=== PATIENT | female | born 1935 | race Caucasian/White ===

== ENCOUNTER 2024-01-13 08:14 | Inpatient (IN) ==
[2024-01-13 08:38] LABS: Basophils # (Auto) 0.02 K/mcL (0.00-0.30); Basophils % (Auto) 0.3 % (0.0-2.0); Eosinophils # (Auto) 0.06 K/mcL (0.00-0.70); Hematocrit 42.8 % (34.1-44.9); Hemoglobin 13.7 g/dL (11.2-15.7); Lymphocytes # (Auto) 1.46 K/mcL (1.50-4.80); Lymphocytes % (Auto) 23.8 % (15.5-49.0); Mean Platelet Volume 10.9 fL (8.8-12.5); Monocytes # (Auto) 0.66 K/mcL (0.10-0.90); Monocytes % (Auto) 10.7 % (1.0-12.0); Platelet Count 182 K/mcL (140-440); RBC 4.81 M/mcL (3.59-5.38); Red Cell Distribution Width 14.4 % (11.5-14.5); WBC 6.1 K/mcL (4.5-11.0)
[2024-01-13 08:47] LABS: INR 0.9 (0.9-1.1); Prothrombin Time 12.3 sec (11.9-14.5)
[2024-01-13 09:00] LABS: ALT/SGPT 14 U/L (<40); AST/SGOT 25 U/L (<32); Albumin 4.4 gm/dL (3.2-5.2); Albumin/Globulin Ratio 1.8 (1.0-2.3); Alkaline Phosphatase 109 U/L (39-117); Blood Urea Nitrogen 10 mg/dL (8-23); Calcium 9.4 mg/dL (8.6-10.4); Carbon Dioxide 26 mmol/L (22-30); Chloride 102 mmol/L (96-108); Globulin 2.4 gm/dL (2.2-3.7); Glomerular Filtration Rate 86; Glucose 122 mg/dL (70-105); Potassium 3.9 mmol/L (3.3-5.1); Sodium 140 mmol/L (133-145)
[2024-01-13] MEDS: oxyCODONE IR 5 MG TABLET PO ONE (11:09)
[2024-01-13 11:17] LABS: Appearance,Urine Clear (Clear); Bacteria,Urine 0 /hpf (0); Bilirubin,Urine Negative (Negative); Color,Urine Light yellow; Culture Indicated,Urine No; Glucose,Urine (UA) Negative (Negative); Ketones,Urine Negative (Negative); Leukocyte Esterase,Urine Negative /uL (Negative); Nitrate,Urine Negative (Negative); PH,Urine 8.5 (5.0-9.0); Protein,Urine Negative (Negative); Specific Gravity,Urine 1.015 (1.000-1.035); Urine Blood Trace-intact ery/mcL (Negative); Urine RBC < 1 /hpf (0-3); Urine Squamous Epithelial Cell < 1 /hpf (0-4); Urine Transitional Epi Cells < 1 /hpf (0-2); Urine WBC < 1 /hpf (0-4); Urobilinogen,Urine Normal
[2024-01-13] MEDS: KETOROLAC 15 MG/ML VIAL IV ONE (11:25)
[2024-01-13] MEDS: ACETAMINOPHEN 1,000 MG/100 ML BAG IV ONE (12:32)
[2024-01-13] MEDS: morphine 2 MG/ML VIAL IV ONE (14:03)
[2024-01-13] MEDS ORDERED: POTASSIUM CHLORIDE 20 MEQ TABLET PO PRN ×2 (17:26)
[2024-01-13] MEDS ORDERED: IPRATROPIUM/ALBUTEROL 3 ML AMPUL.NEB NEB PRN (17:26)
[2024-01-13] MEDS ORDERED: MAGNESIUM SULFATE 2 GM/50 ML BAG IV PRN (17:26)
[2024-01-13] MEDS ORDERED: POTASSIUM CHLORIDE 40 MEQ in DEXTROSE 5% IN WATER 500 ML IV PRN (17:26)
[2024-01-13] MEDS: METHOCARBAMOL 1,000 MG/10 ML VIAL IV PRN (17:37)
[2024-01-13] MEDS: 0.9 % SODIUM CHLORIDE 1,500 ML IV ONE (17:37)
[2024-01-13] MEDS: HYDROcodone/APAP 5/325MG TABLET PO PRN (18:45)
[2024-01-13] MEDS ORDERED: traZODone HCL 50 MG TABLET PO PRN (20:36)
[2024-01-13] MEDS: 0.9 % SODIUM CHLORIDE 10 ML SYRINGE IV SCH (20:40)
[2024-01-13] MEDS ORDERED: HYDROcodone/APAP (PP) 5/325MG TABLET (#4) PO PRN (20:57)
[2024-01-13] MEDS: CARBIDOPA/LEVODOPA 10/100 TABLET PO SCH (21:28)
[2024-01-13] MEDS: ACETAMINOPHEN 325 MG TABLET PO PRN (21:28)
[2024-01-13] MEDS: traZODone HCL 50 MG TABLET PO SCH (21:28)
[2024-01-13] MEDS: DOCUSATE SODIUM 100 MG CAPSULE PO SCH (21:28)
[2024-01-13] MEDS: ONDANSETRON 4 MG/2 ML VIAL IV PRN (23:38)
[2024-01-14] MEDS: ATORVASTATIN 40 MG TABLET PO SCH (08:10)
[2024-01-14] MEDS: DICYCLOMINE 20 MG TABLET PO SCH (08:10)
[2024-01-14] MEDS: DONEPEZIL 10 MG TABLET PO SCH (08:11)
[2024-01-14] MEDS: CLOPIDOGREL 75 MG TABLET PO SCH (08:11)
[2024-01-14] MEDS: Cyclosporine [Restasis] 0.05 % dropperette OU SCH (08:12)
[2024-01-14] MEDS: ENOXAPARIN 40 MG/0.4 ML SYRINGE SQ SCH (08:12)
[2024-01-14] MEDS: LATANOPROST OPHTH DROPS 2.5ML BOTTLE OU SCH (08:12)
[2024-01-14] MEDS: Mirabegron 50 mg tablet extended release 24 hr PO SCH (08:12)
[2024-01-14] MEDS: LIDOCAINE 4% TOP PATCH TOPICAL SCH (09:20)
[2024-01-14] MEDS: POLYETHYLENE GLYCOL 3350 17 GM PACKET PO PRN (09:57)
[2024-01-14] MEDS: SENNOSIDES 1 TABLET PO PRN (09:57)
[2024-01-15 07:08] LABS: Basophils # (Auto) 0.03 K/mcL (0.00-0.30); Basophils % (Auto) 0.3 % (0.0-2.0); Eosinophils # (Auto) 0.11 K/mcL (0.00-0.70); Eosinophils % (Auto) 1.3 % (0.0-7.0); Hematocrit 32.3 % (34.1-44.9); Hemoglobin 10.4 g/dL (11.2-15.7); Lymphocytes # (Auto) 0.84 K/mcL (1.50-4.80); Lymphocytes % (Auto) 9.7 % (15.5-49.0); Mean Cell Volume 90.7 fL (80.0-100.0); Mean Corpuscular HGB Conc 32.2 g/dL (31.0-36.0); Mean Platelet Volume 11.7 fL (8.8-12.5); Monocytes # (Auto) 1.32 K/mcL (0.10-0.90); Monocytes % (Auto) 15.2 % (1.0-12.0); Neutrophils % (Auto) 73.4 % (38.0-78.0); Platelet Count 145 K/mcL (140-440); RBC 3.56 M/mcL (3.59-5.38); Red Cell Distribution Width 14.5 % (11.5-14.5); WBC 8.7 K/mcL (4.5-11.0)
[2024-01-15 07:15] LABS: Blood Urea Nitrogen 9 mg/dL (8-23); Calcium 8.6 mg/dL (8.6-10.4); Carbon Dioxide 25 mmol/L (22-30); Chloride 105 mmol/L (96-108); Glomerular Filtration Rate 86; Glucose 144 mg/dL (70-105); Potassium 3.9 mmol/L (3.3-5.1); Sodium 140 mmol/L (133-145)
[2024-01-15] MEDS: hydrOXYzine 25 MG TABLET PO ONE (12:14)
[2024-01-16 06:35] LABS: Blood Urea Nitrogen 11 mg/dL (8-23); Calcium 8.6 mg/dL (8.6-10.4); Carbon Dioxide 26 mmol/L (22-30); Chloride 106 mmol/L (96-108); Glomerular Filtration Rate 86; Glucose 118 mg/dL (70-105); Potassium 3.9 mmol/L (3.3-5.1); Sodium 140 mmol/L (133-145)
[2024-01-16 07:14] LABS: Basophils # (Auto) 0.06 K/mcL (0.00-0.30); Basophils % (Auto) 0.8 % (0.0-2.0); Eosinophils # (Auto) 0.18 K/mcL (0.00-0.70); Eosinophils % (Auto) 2.3 % (0.0-7.0); Hematocrit 32.4 % (34.1-44.9); Hemoglobin 10.4 g/dL (11.2-15.7); Lymphocytes # (Auto) 0.96 K/mcL (1.50-4.80); Mean Corpuscular HGB Conc 32.1 g/dL (31.0-36.0); Monocytes % (Auto) 16.3 % (1.0-12.0); Neutrophils % (Auto) 68.5 % (38.0-78.0); Platelet Count 150 K/mcL (140-440); Red Cell Distribution Width 14.5 % (11.5-14.5)
[2024-01-16] MEDS: morphine 4 MG/ML VIAL IV ONE (11:09)
[2024-01-16] MEDS: CYCLOBENZAPRINE 10 MG TABLET PO PRN (11:57)
[2024-01-16] MEDS: HYDROcodone/APAP 5/325MG TABLET PO PRN (16:55)
== END 2024-01-18 11:05 | DRG 563 ==
LOC: MEDSUR 08:14 → ED 08:14 → MEDSUR 17:12
PROVIDERS: ADMIT Internal Medicine; ATTEND Student in an Organized Health Care Education/Training Program

== ENCOUNTER 2024-05-07 09:32 | Inpatient (IN) ==
[2024-05-07] MEDS ORDERED: IOPAMIDOL 100 ML BOTTLE IV ONE (09:33)
[2024-05-07] MEDS: 0.9 % SODIUM CHLORIDE 500 ML IV ONE ×2 (10:36→12:25)
[2024-05-07 10:41] LABS: Basophils # (Auto) 0.01 K/mcL (0.00-0.30); Basophils % (Auto) 0.1 % (0.0-2.0); Eosinophils # (Auto) 0 K/mcL (0.00-0.70); Eosinophils % (Auto) 0 % (0.0-7.0); Hematocrit 40.4 % (34.1-44.9); Hemoglobin 13.3 g/dL (11.2-15.7); Lymphocytes # (Auto) 0.47 K/mcL (1.50-4.80); Lymphocytes % (Auto) 2.5 % (15.5-49.0); Mean Corpuscular HGB Conc 32.9 g/dL (31.0-36.0); Monocytes # (Auto) 0.64 K/mcL (0.10-0.90); Monocytes % (Auto) 3.4 % (1.0-12.0); Neutrophils % (Auto) 93.8 % (38.0-78.0); Platelet Count 79 K/mcL (140-440); RBC 4.81 M/mcL (3.59-5.38); Red Cell Distribution Width 15.7 % (11.5-14.5); WBC 18.6 K/mcL (4.5-11.0)
[2024-05-07 10:49] LABS: ALT/SGPT 103 U/L (<40); AST/SGOT 61 U/L (<32); Albumin 3.4 gm/dL (3.2-5.2); Albumin/Globulin Ratio 1.2 (1.0-2.3); Alkaline Phosphatase 131 U/L (39-117); Bilirubin,Total 1.9 mg/dL (0.1-1.0); Blood Urea Nitrogen 37 mg/dL (8-23); Calcium 9.4 mg/dL (8.6-10.4); Carbon Dioxide 22 mmol/L (22-30); Chloride 105 mmol/L (96-108); Globulin 2.9 gm/dL (2.2-3.7); Glomerular Filtration Rate 50; Glucose 131 mg/dL (70-105); Potassium 3.7 mmol/L (3.3-5.1); Sodium 141 mmol/L (133-145)
[2024-05-07] MEDS: cefTRIAXone 1 GM VIAL IV ONE (12:19)
[2024-05-07 13:57] LABS: Appearance,Urine Clear (Clear); Bilirubin,Urine Negative (Negative); Color,Urine Yellow; Glucose,Urine (UA) Negative (Negative); Ketones,Urine 15 mg/dL (Negative); Leukocyte Esterase,Urine Negative /uL (Negative); Mucus,Urine Few /hpf; Nitrate,Urine Negative (Negative); PH,Urine 5.5 (5.0-9.0); Protein,Urine 30 mg/dL (Negative); Specific Gravity,Urine 1.015 (1.000-1.035); Urine Blood Small ery/mcL (Negative); Urine RBC 1 /hpf (0-3); Urine Squamous Epithelial Cell 0 /hpf (0-4); Urine WBC 0 /hpf (0-4); Urobilinogen,Urine Normal
[2024-05-07 17:11] LABS: Anisocytosis 1+ (None Seen); Band Neutrophils % 9 % (0-10); Lymphocytes % 1 % (15-49); Monocytes % (Manual) 5 % (1-12); Platelet Estimate DECREASED (Normal); RBC Morphology ABNORMAL (Normal); Reactive Lymphocytes 4 % (0-2); Segmented Neutrophils % 81 % (38-78)
[2024-05-07] MEDS ORDERED: ONDANSETRON 4 MG/2 ML VIAL IV PRN ×2 (17:41→18:28)
[2024-05-07] MEDS ORDERED: POTASSIUM CHLORIDE 20 MEQ TABLET PO PRN ×2 (18:28)
[2024-05-07] MEDS ORDERED: IPRATROPIUM/ALBUTEROL 3 ML AMPUL.NEB NEB PRN (18:28)
[2024-05-07] MEDS ORDERED: METOCLOPRAMIDE 10 MG/2 ML VIAL IV PRN (18:28)
[2024-05-07] MEDS ORDERED: MAGNESIUM SULFATE 2 GM/50 ML BAG IV PRN (18:28)
[2024-05-07] MEDS ORDERED: SENNOSIDES 1 TABLET PO PRN (18:28)
[2024-05-07] MEDS ORDERED: POLYETHYLENE GLYCOL 3350 17 GM PACKET PO PRN (18:28)
[2024-05-07] MEDS ORDERED: POTASSIUM CHLORIDE 40 MEQ in DEXTROSE 5% IN WATER 500 ML IV PRN (18:28)
[2024-05-07] MEDS ORDERED: LABETALOL HCL 20 MG/4 ML VIAL IV PRN (19:11)
[2024-05-07] MEDS: 0.9 % SODIUM CHLORIDE 1,000 ML IV ONE (19:48)
[2024-05-07] MEDS: metroNIDAZOLE 500 MG/100 ML BAG IV SCH (19:50)
[2024-05-07] MEDS: DOCUSATE SODIUM 100 MG CAPSULE PO SCH (20:57)
[2024-05-07] MEDS: CEFEPIME 1 GM VIAL IV SCH (21:00)
[2024-05-07] MEDS: 0.9 % SODIUM CHLORIDE 10 ML SYRINGE IV SCH (21:00)
[2024-05-08 06:17] LABS: ALT/SGPT 67 U/L (<40); AST/SGOT 35 U/L (<32); Albumin 3.1 gm/dL (3.2-5.2); Albumin/Globulin Ratio 1.1 (1.0-2.3); Alkaline Phosphatase 134 U/L (39-117); Bilirubin,Direct 0.8 mg/dL (<0.3); Bilirubin,Total 1.5 mg/dL (0.1-1.0); Blood Urea Nitrogen 31 mg/dL (8-23); Calcium 8.9 mg/dL (8.6-10.4); Carbon Dioxide 23 mmol/L (22-30); Chloride 105 mmol/L (96-108); Globulin 2.8 gm/dL (2.2-3.7); Glomerular Filtration Rate 57; Glucose 116 mg/dL (70-105); Lactate Dehydrogenase 187 U/L (135-225); Phosphorous 2.3 mg/dL (2.5-4.5); Potassium 3.5 mmol/L (3.3-5.1); Sodium 140 mmol/L (133-145); Triglycerides 66 mg/dL (<150); Uric Acid 4.3 mg/dL (2.5-8.0)
[2024-05-08 06:24] LABS: Basophils # (Auto) 0.02 K/mcL (0.00-0.30); Basophils % (Auto) 0.2 % (0.0-2.0); Eosinophils # (Auto) 0 K/mcL (0.00-0.70); Eosinophils % (Auto) 0 % (0.0-7.0); Hematocrit 37.8 % (34.1-44.9); Hemoglobin 12.3 g/dL (11.2-15.7); Lymphocytes # (Auto) 0.46 K/mcL (1.50-4.80); Lymphocytes % (Auto) 3.6 % (15.5-49.0); Mean Cell Volume 84.8 fL (80.0-100.0); Mean Corpuscular HGB Conc 32.5 g/dL (31.0-36.0); Monocytes # (Auto) 0.78 K/mcL (0.10-0.90); Monocytes % (Auto) 6.2 % (1.0-12.0); Neutrophils % (Auto) 89.6 % (38.0-78.0); Platelet Count 72 K/mcL (140-440); RBC 4.46 M/mcL (3.59-5.38); Red Cell Distribution Width 15.5 % (11.5-14.5); WBC 12.7 K/mcL (4.5-11.0)
[2024-05-08] MEDS: ENOXAPARIN 40 MG/0.4 ML SYRINGE SQ SCH (08:37)
[2024-05-08] MEDS: 0.9 % SODIUM CHLORIDE 500 ML IV ONE (08:49)
[2024-05-08] MEDS: ACETAMINOPHEN 325 MG TABLET PO PRN (14:14)
[2024-05-08] MEDS: BACLOFEN 10 MG TABLET PO SCH (14:15)
[2024-05-08] MEDS: traZODone HCL 50 MG TABLET PO SCH (20:37)
[2024-05-08] MEDS: CARBIDOPA/LEVODOPA 10/100 TABLET PO SCH (20:37)
[2024-05-08] MEDS: Cyclosporine [Restasis] 0.05 % dropperette OU SCH (21:38)
[2024-05-08] MEDS: 0.9 % SODIUM CHLORIDE 1,000 ML IV SCH (23:25)
[2024-05-09 06:31] LABS: ALT/SGPT 32 U/L (<40); AST/SGOT 31 U/L (<32); Albumin 2.8 gm/dL (3.2-5.2); Albumin/Globulin Ratio 1.2 (1.0-2.3); Alkaline Phosphatase 138 U/L (39-117); Bilirubin,Direct 0.7 mg/dL (<0.3); Bilirubin,Total 1.3 mg/dL (0.1-1.0); Blood Urea Nitrogen 24 mg/dL (8-23); Calcium 8.5 mg/dL (8.6-10.4); Carbon Dioxide 19 mmol/L (22-30); Chloride 102 mmol/L (96-108); Globulin 2.4 gm/dL (2.2-3.7); Glomerular Filtration Rate 66; Glucose 117 mg/dL (70-105); Lactate Dehydrogenase 158 U/L (135-225); Potassium 3.2 mmol/L (3.3-5.1); Sodium 133 mmol/L (133-145); Triglycerides 52 mg/dL (<150)
[2024-05-09 07:06] LABS: Basophils # (Auto) 0.02 K/mcL (0.00-0.30); Basophils % (Auto) 0.2 % (0.0-2.0); Eosinophils # (Auto) 0.02 K/mcL (0.00-0.70); Eosinophils % (Auto) 0.2 % (0.0-7.0); Hematocrit 37.3 % (34.1-44.9); Hemoglobin 12.4 g/dL (11.2-15.7); Lymphocytes # (Auto) 0.59 K/mcL (1.50-4.80); Lymphocytes % (Auto) 5.1 % (15.5-49.0); Mean Cell Volume 81.8 fL (80.0-100.0); Mean Corpuscular HGB Conc 33.2 g/dL (31.0-36.0); Mean Platelet Volume 12.7 fL (8.8-12.5); Monocytes # (Auto) 1.22 K/mcL (0.10-0.90); Monocytes % (Auto) 10.5 % (1.0-12.0); Neutrophils % (Auto) 83.5 % (38.0-78.0); Platelet Count 85 K/mcL (140-440); RBC 4.56 M/mcL (3.59-5.38); Red Cell Distribution Width 15.6 % (11.5-14.5); WBC 11.7 K/mcL (4.5-11.0)
[2024-05-09] MEDS: DONEPEZIL 10 MG TABLET PO SCH (08:29)
[2024-05-09] MEDS: ATORVASTATIN 40 MG TABLET PO SCH (08:29)
[2024-05-09] MEDS: CLOPIDOGREL 75 MG TABLET PO SCH (08:29)
[2024-05-09] MEDS: Mirabegron 50 mg tablet extended release 24 hr PO SCH (08:29)
[2024-05-09] MEDS: LATANOPROST OPHTH DROPS 2.5ML BOTTLE OU SCH (08:38)
[2024-05-09] MEDS: POLYETHYLENE GLYCOL 3350 17 GM PACKET PO SCH (11:36)
[2024-05-09] MEDS: SENNOSIDES 1 TABLET PO SCH (11:36)
[2024-05-09] MEDS: POTASSIUM PHOSPHATE 40 MEQ in 0.9 % SODIUM CHLORIDE 500 ML IV ONE (12:26)
[2024-05-09] MEDS: metroNIDAZOLE 500 MG TABLET PO SCH (16:08)
[2024-05-10 07:14] LABS: ALT/SGPT 28 U/L (<40); AST/SGOT 44 U/L (<32); Albumin 2.7 gm/dL (3.2-5.2); Alkaline Phosphatase 162 U/L (39-117); Bilirubin,Direct 0.7 mg/dL (<0.3); Bilirubin,Total 1.1 mg/dL (0.1-1.0); Blood Urea Nitrogen 22 mg/dL (8-23); Calcium 8.4 mg/dL (8.6-10.4); Carbon Dioxide 19 mmol/L (22-30); Chloride 104 mmol/L (96-108); Globulin 2.7 gm/dL (2.2-3.7); Glomerular Filtration Rate 57; Glucose 150 mg/dL (70-105); Lactate Dehydrogenase 207 U/L (135-225); Phosphorous 2.4 mg/dL (2.5-4.5); Potassium 3.2 mmol/L (3.3-5.1); Sodium 135 mmol/L (133-145); Triglycerides 45 mg/dL (<150); Uric Acid 4.1 mg/dL (2.5-8.0)
[2024-05-10 07:31] LABS: Basophils # (Auto) 0.05 K/mcL (0.00-0.30); Basophils % (Auto) 0.3 % (0.0-2.0); Eosinophils # (Auto) 0.02 K/mcL (0.00-0.70); Eosinophils % (Auto) 0.1 % (0.0-7.0); Hemoglobin 12.9 g/dL (11.2-15.7); Lymphocytes # (Auto) 0.73 K/mcL (1.50-4.80); Mean Cell Volume 80.7 fL (80.0-100.0); Mean Corpuscular HGB Conc 33.9 g/dL (31.0-36.0); Monocytes # (Auto) 1.87 K/mcL (0.10-0.90); Monocytes % (Auto) 10.3 % (1.0-12.0); Neutrophils % (Auto) 84.6 % (38.0-78.0); Platelet Count 106 K/mcL (140-440); RBC 4.71 M/mcL (3.59-5.38); Red Cell Distribution Width 15.5 % (11.5-14.5); WBC 18.2 K/mcL (4.5-11.0)
[2024-05-10] MEDS: POTASSIUM CHLORIDE 20 MEQ PACKET PO ONE (08:14)
[2024-05-10 13:32] LABS: Potassium 4.1 mmol/L (3.3-5.1)
[2024-05-10] MEDS ORDERED: SENNOSIDES 1 TABLET PO PRN (15:44)
[2024-05-10] MEDS ORDERED: POLYETHYLENE GLYCOL 3350 17 GM PACKET PO PRN (15:44)
[2024-05-11 07:09] LABS: ALT/SGPT 26 U/L (<40); AST/SGOT 33 U/L (<32); Albumin 2.7 gm/dL (3.2-5.2); Alkaline Phosphatase 161 U/L (39-117); Bilirubin,Direct 0.5 mg/dL (<0.3); Bilirubin,Total 0.8 mg/dL (0.1-1.0); Blood Urea Nitrogen 21 mg/dL (8-23); Calcium 8.4 mg/dL (8.6-10.4); Carbon Dioxide 19 mmol/L (22-30); Chloride 104 mmol/L (96-108); Globulin 2.8 gm/dL (2.2-3.7); Glomerular Filtration Rate 57; Glucose 182 mg/dL (70-105); Lactate Dehydrogenase 206 U/L (135-225); Potassium 3.8 mmol/L (3.3-5.1); Sodium 134 mmol/L (133-145); Triglycerides 58 mg/dL (<150); Uric Acid 3.8 mg/dL (2.5-8.0)
[2024-05-11 07:53] LABS: Basophils # (Auto) 0.04 K/mcL (0.00-0.30); Basophils % (Auto) 0.2 % (0.0-2.0); Eosinophils # (Auto) 0.04 K/mcL (0.00-0.70); Eosinophils % (Auto) 0.2 % (0.0-7.0); Hematocrit 39.7 % (34.1-44.9); Hemoglobin 13.2 g/dL (11.2-15.7); Lymphocytes % (Auto) 4.6 % (15.5-49.0); Mean Cell Volume 81.4 fL (80.0-100.0); Mean Corpuscular HGB Conc 33.2 g/dL (31.0-36.0); Monocytes # (Auto) 2.15 K/mcL (0.10-0.90); Monocytes % (Auto) 11.1 % (1.0-12.0); Platelet Count 133 K/mcL (140-440); RBC 4.88 M/mcL (3.59-5.38); Red Cell Distribution Width 15.8 % (11.5-14.5); WBC 19.4 K/mcL (4.5-11.0)
[2024-05-11] MEDS: POTASSIUM PHOSPHATE 40 MEQ in 0.9 % SODIUM CHLORIDE 500 ML IV ONE (11:02)
[2024-05-11] MEDS: CIPROFLOXACIN 400 MG/200 ML BAG IV SCH (12:07)
[2024-05-11] MEDS: metroNIDAZOLE 500 MG/100 ML BAG IV SCH ×2 (16:52→21:48)
[2024-05-11] MEDS: ACETAMINOPHEN 650 MG/65 ML BAG IV PRN (16:53)
[2024-05-11 19:31] LABS: ABG Methemoglobin 0.2 % (0.4-1.5); Total Hemoglobin 13.9 gm/Dl (12.0-15.0); VBG Base Excess 0 (-2-3); VBG HCO3 21.7 mmol/L (24.0-28.0); VBG Oxygen Saturation 92.8 % (40.0-70.0); VBG PCO2 26.6 mmHg (41.0-51.0); VBG PH 7.53 U (7.32-7.42); VBG PO2 112.5 mmHg (25.0-40.0); VBG Total CO2 22.5 mmol/L (25.0-29.0)
[2024-05-11 19:42] LABS: Blood Urea Nitrogen 17 mg/dL (8-23); Carbon Dioxide 19 mmol/L (22-30); Chloride 102 mmol/L (96-108); Glomerular Filtration Rate 66; Glucose 164 mg/dL (70-105); Potassium 4.1 mmol/L (3.3-5.1); Sodium 132 mmol/L (133-145)
[2024-05-12 07:17] LABS: Basophils # (Auto) 0.14 K/mcL (0.00-0.30); Basophils % (Auto) 0.6 % (0.0-2.0); Eosinophils # (Auto) 0.03 K/mcL (0.00-0.70); Eosinophils % (Auto) 0.1 % (0.0-7.0); Hematocrit 37.9 % (34.1-44.9); Hemoglobin 12.8 g/dL (11.2-15.7); Lymphocytes # (Auto) 0.93 K/mcL (1.50-4.80); Lymphocytes % (Auto) 4.3 % (15.5-49.0); Mean Cell Volume 80.8 fL (80.0-100.0); Mean Corpuscular HGB Conc 33.8 g/dL (31.0-36.0); Mean Platelet Volume 11.5 fL (8.8-12.5); Monocytes # (Auto) 2.19 K/mcL (0.10-0.90); Monocytes % (Auto) 10.2 % (1.0-12.0); Neutrophils % (Auto) 84.2 % (38.0-78.0); Platelet Count 173 K/mcL (140-440); RBC 4.69 M/mcL (3.59-5.38); Red Cell Distribution Width 15.6 % (11.5-14.5); WBC 21.6 K/mcL (4.5-11.0)
[2024-05-12 07:29] LABS: ALT/SGPT 12 U/L (<40); AST/SGOT 35 U/L (<32); Albumin 2.6 gm/dL (3.2-5.2); Albumin/Globulin Ratio 0.9 (1.0-2.3); Alkaline Phosphatase 174 U/L (39-117); Bilirubin,Total 0.8 mg/dL (0.1-1.0); Blood Urea Nitrogen 17 mg/dL (8-23); Calcium 8.3 mg/dL (8.6-10.4); Carbon Dioxide 18 mmol/L (22-30); Chloride 102 mmol/L (96-108); Glomerular Filtration Rate 66; Glucose 141 mg/dL (70-105); Potassium 4.1 mmol/L (3.3-5.1); Sodium 134 mmol/L (133-145)
[2024-05-12] MEDS: AZTREONAM 1 GM VIAL IV SCH (10:55)
[2024-05-13 06:39] LABS: Basophils # (Auto) 0.12 K/mcL (0.00-0.30); Basophils % (Auto) 0.5 % (0.0-2.0); Eosinophils # (Auto) 0.11 K/mcL (0.00-0.70); Eosinophils % (Auto) 0.5 % (0.0-7.0); Hematocrit 34.8 % (34.1-44.9); Hemoglobin 11.7 g/dL (11.2-15.7); Lymphocytes % (Auto) 4.5 % (15.5-49.0); Mean Cell Volume 80.7 fL (80.0-100.0); Mean Corpuscular HGB Conc 33.6 g/dL (31.0-36.0); Mean Platelet Volume 11.8 fL (8.8-12.5); Monocytes # (Auto) 1.61 K/mcL (0.10-0.90); Monocytes % (Auto) 7.3 % (1.0-12.0); Neutrophils % (Auto) 86.7 % (38.0-78.0); Platelet Count 210 K/mcL (140-440); RBC 4.31 M/mcL (3.59-5.38); Red Cell Distribution Width 15.4 % (11.5-14.5); WBC 22.2 K/mcL (4.5-11.0)
[2024-05-13 06:45] LABS: ALT/SGPT 19 U/L (<40); AST/SGOT 42 U/L (<32); Albumin 2.5 gm/dL (3.2-5.2); Alkaline Phosphatase 152 U/L (39-117); Bilirubin,Total 0.7 mg/dL (0.1-1.0); Blood Urea Nitrogen 20 mg/dL (8-23); Calcium 7.9 mg/dL (8.6-10.4); Carbon Dioxide 19 mmol/L (22-30); Chloride 102 mmol/L (96-108); Globulin 2.6 gm/dL (2.2-3.7); Glomerular Filtration Rate 66; Glucose 156 mg/dL (70-105); Potassium 3.8 mmol/L (3.3-5.1); Sodium 132 mmol/L (133-145)
[2024-05-13] MEDS: VANCOMYCIN 125 MG CAPSULE PO SCH (08:51)
[2024-05-14 06:14] LABS: ALT/SGPT 14 U/L (<40); AST/SGOT 33 U/L (<32); Albumin 2.4 gm/dL (3.2-5.2); Albumin/Globulin Ratio 0.8 (1.0-2.3); Alkaline Phosphatase 148 U/L (39-117); Basophils # (Auto) 0.11 K/mcL (0.00-0.30); Basophils % (Auto) 0.4 % (0.0-2.0); Bilirubin,Total 0.7 mg/dL (0.1-1.0); Blood Urea Nitrogen 21 mg/dL (8-23); Calcium 7.9 mg/dL (8.6-10.4); Carbon Dioxide 19 mmol/L (22-30); Chloride 104 mmol/L (96-108); Eosinophils # (Auto) 0.06 K/mcL (0.00-0.70); Eosinophils % (Auto) 0.2 % (0.0-7.0); Globulin 2.9 gm/dL (2.2-3.7); Glomerular Filtration Rate 66; Glucose 167 mg/dL (70-105); Hematocrit 34.2 % (34.1-44.9); Hemoglobin 11.5 g/dL (11.2-15.7); Lymphocytes # (Auto) 1.04 K/mcL (1.50-4.80); Lymphocytes % (Auto) 3.6 % (15.5-49.0); Mean Cell Volume 82.2 fL (80.0-100.0); Mean Corpuscular HGB Conc 33.6 g/dL (31.0-36.0); Mean Platelet Volume 11.6 fL (8.8-12.5); Monocytes # (Auto) 2.18 K/mcL (0.10-0.90); Monocytes % (Auto) 7.5 % (1.0-12.0); Neutrophils % (Auto) 87.7 % (38.0-78.0); Platelet Count 278 K/mcL (140-440); Potassium 3.7 mmol/L (3.3-5.1); RBC 4.16 M/mcL (3.59-5.38); Red Cell Distribution Width 15.6 % (11.5-14.5); Sodium 133 mmol/L (133-145); WBC 29.1 K/mcL (4.5-11.0)
[2024-05-15 06:03] LABS: Basophils # (Auto) 0.08 K/mcL (0.00-0.30); Basophils % (Auto) 0.3 % (0.0-2.0); Eosinophils # (Auto) 0.09 K/mcL (0.00-0.70); Eosinophils % (Auto) 0.4 % (0.0-7.0); Hematocrit 35.1 % (34.1-44.9); Hemoglobin 11.5 g/dL (11.2-15.7); Lymphocytes # (Auto) 0.91 K/mcL (1.50-4.80); Lymphocytes % (Auto) 3.9 % (15.5-49.0); Mean Cell Volume 82.6 fL (80.0-100.0); Mean Corpuscular HGB Conc 32.8 g/dL (31.0-36.0); Mean Platelet Volume 11.6 fL (8.8-12.5); Monocytes # (Auto) 2.17 K/mcL (0.10-0.90); Monocytes % (Auto) 9.4 % (1.0-12.0); Neutrophils % (Auto) 85.4 % (38.0-78.0); Platelet Count 321 K/mcL (140-440); RBC 4.25 M/mcL (3.59-5.38); Red Cell Distribution Width 15.7 % (11.5-14.5); WBC 23.1 K/mcL (4.5-11.0)
[2024-05-15 06:27] LABS: ALT/SGPT 20 U/L (<40); AST/SGOT 43 U/L (<32); Albumin 2.4 gm/dL (3.2-5.2); Albumin/Globulin Ratio 0.8 (1.0-2.3); Alkaline Phosphatase 146 U/L (39-117); Bilirubin,Total 0.6 mg/dL (0.1-1.0); Blood Urea Nitrogen 26 mg/dL (8-23); Calcium 8.1 mg/dL (8.6-10.4); Carbon Dioxide 21 mmol/L (22-30); Chloride 105 mmol/L (96-108); Globulin 2.9 gm/dL (2.2-3.7); Glomerular Filtration Rate 57; Glucose 175 mg/dL (70-105); Potassium 3.2 mmol/L (3.3-5.1); Sodium 136 mmol/L (133-145)
[2024-05-15] MEDS ORDERED: POTASSIUM PHOSPHATE 40 MEQ in DEXTROSE 5% IN WATER 500 ML IV SCH (11:00)
[2024-05-15] MEDS: POTASSIUM PHOSPHATE 40 MEQ in 0.9 % SODIUM CHLORIDE 500 ML IV SCH (11:10)
[2024-05-16 06:05] LABS: Basophils # (Auto) 0.06 K/mcL (0.00-0.30); Basophils % (Auto) 0.3 % (0.0-2.0); Eosinophils # (Auto) 0.09 K/mcL (0.00-0.70); Eosinophils % (Auto) 0.4 % (0.0-7.0); Hemoglobin 11.4 g/dL (11.2-15.7); Lymphocytes # (Auto) 0.87 K/mcL (1.50-4.80); Lymphocytes % (Auto) 4.3 % (15.5-49.0); Mean Cell Volume 81.3 fL (80.0-100.0); Mean Corpuscular HGB Conc 33.5 g/dL (31.0-36.0); Mean Platelet Volume 11.2 fL (8.8-12.5); Monocytes # (Auto) 2.15 K/mcL (0.10-0.90); Monocytes % (Auto) 10.5 % (1.0-12.0); Platelet Count 366 K/mcL (140-440); RBC 4.18 M/mcL (3.59-5.38); Red Cell Distribution Width 15.7 % (11.5-14.5); WBC 20.4 K/mcL (4.5-11.0)
[2024-05-16 06:28] LABS: ALT/SGPT 30 U/L (<40); AST/SGOT 71 U/L (<32); Albumin 2.6 gm/dL (3.2-5.2); Albumin/Globulin Ratio 0.8 (1.0-2.3); Alkaline Phosphatase 222 U/L (39-117); Bilirubin,Total 0.5 mg/dL (0.1-1.0); Blood Urea Nitrogen 25 mg/dL (8-23); Calcium 8.3 mg/dL (8.6-10.4); Carbon Dioxide 18 mmol/L (22-30); Chloride 107 mmol/L (96-108); Globulin 3.3 gm/dL (2.2-3.7); Glomerular Filtration Rate 77; Glucose 195 mg/dL (70-105); Phosphorous 3.5 mg/dL (2.5-4.5); Potassium 3.6 mmol/L (3.3-5.1); Sodium 135 mmol/L (133-145)
[2024-05-16] MEDS: VANCOMYCIN 125 MG CAPSULE PO SCH ×2 (12:12→13:12)
[2024-05-16] MEDS: 0.9 % SODIUM CHLORIDE 500 ML IV ONE (19:40)
[2024-05-17 06:37] LABS: Hematocrit 31.8 % (34.1-44.9); Hemoglobin 10.8 g/dL (11.2-15.7); Mean Cell Volume 81.1 fL (80.0-100.0); Mean Platelet Volume 11.9 fL (8.8-12.5); Platelet Count 398 K/mcL (140-440); RBC 3.92 M/mcL (3.59-5.38); Red Cell Distribution Width 15.6 % (11.5-14.5); WBC 16.5 K/mcL (4.5-11.0)
[2024-05-17 07:05] LABS: ALT/SGPT 21 U/L (<40); AST/SGOT 43 U/L (<32); Albumin 2.3 gm/dL (3.2-5.2); Albumin/Globulin Ratio 0.7 (1.0-2.3); Alkaline Phosphatase 150 U/L (39-117); Bilirubin,Direct 0.4 mg/dL (<0.3); Bilirubin,Total 0.6 mg/dL (0.1-1.0); Blood Urea Nitrogen 23 mg/dL (8-23); Calcium 8.6 mg/dL (8.6-10.4); Carbon Dioxide 18 mmol/L (22-30); Chloride 108 mmol/L (96-108); Globulin 3.2 gm/dL (2.2-3.7); Glomerular Filtration Rate 66; Glucose 177 mg/dL (70-105); Lactate Dehydrogenase 197 U/L (135-225); Phosphorous 3.2 mg/dL (2.5-4.5); Potassium 3.6 mmol/L (3.3-5.1); Sodium 138 mmol/L (133-145); Triglycerides 44 mg/dL (<150); Uric Acid 3.6 mg/dL (2.5-8.0)
[2024-05-17 07:07] LABS: Band Neutrophils % 3 % (0-10); Lymphocytes % 2 % (15-49); Monocytes % (Manual) 2 % (1-12); Platelet Estimate NORMAL (Normal); RBC Morphology NORMAL (Normal); Segmented Neutrophils % 93 % (38-78)
[2024-05-17] MEDS: BACLOFEN 10 MG TABLET PO SCH (09:13)
[2024-05-17] MEDS: DULoxetine 30 MG CAPSULE PO SCH (09:14)
[2024-05-17] MEDS: SODIUM BICARBONATE 650 MG TABLET PO SCH (09:14)
[2024-05-18 06:26] LABS: Basophils # (Auto) 0.06 K/mcL (0.00-0.30); Basophils % (Auto) 0.5 % (0.0-2.0); Eosinophils # (Auto) 0.12 K/mcL (0.00-0.70); Hematocrit 30.2 % (34.1-44.9); Hemoglobin 10.2 g/dL (11.2-15.7); Lymphocytes % (Auto) 7.2 % (15.5-49.0); Mean Cell Volume 82.3 fL (80.0-100.0); Mean Corpuscular HGB Conc 33.8 g/dL (31.0-36.0); Mean Platelet Volume 11.9 fL (8.8-12.5); Monocytes # (Auto) 1.38 K/mcL (0.10-0.90); Neutrophils % (Auto) 79.9 % (38.0-78.0); Platelet Count 378 K/mcL (140-440); RBC 3.67 M/mcL (3.59-5.38); Red Cell Distribution Width 15.7 % (11.5-14.5); WBC 12.5 K/mcL (4.5-11.0)
[2024-05-18 06:46] LABS: ALT/SGPT 24 U/L (<40); AST/SGOT 39 U/L (<32); Albumin 2.2 gm/dL (3.2-5.2); Albumin/Globulin Ratio 0.7 (1.0-2.3); Alkaline Phosphatase 134 U/L (39-117); Bilirubin,Direct 0.4 mg/dL (<0.3); Bilirubin,Total 0.5 mg/dL (0.1-1.0); Blood Urea Nitrogen 26 mg/dL (8-23); Calcium 8.4 mg/dL (8.6-10.4); Carbon Dioxide 20 mmol/L (22-30); Chloride 107 mmol/L (96-108); Globulin 3.2 gm/dL (2.2-3.7); Glomerular Filtration Rate 86; Glucose 173 mg/dL (70-105); Lactate Dehydrogenase 189 U/L (135-225); Phosphorous 2.9 mg/dL (2.5-4.5); Potassium 3.3 mmol/L (3.3-5.1); Sodium 138 mmol/L (133-145); Triglycerides 54 mg/dL (<150); Uric Acid 3.5 mg/dL (2.5-8.0)
[2024-05-18] MEDS: SODIUM BICARBONATE 650 MG TABLET PO SCH (09:01)
== END 2024-05-18 13:20 | DRG 871 ==
LOC: ED 09:32 → MEDSUR 19:06
PROVIDERS: ADMIT Internal Medicine; ATTEND Internal Medicine